=== PATIENT | female | born 1960 | race Caucasian/White ===

== ENCOUNTER 2019-11-09 09:18 | Day surgery (SDC) | payer BC ==
[~2019-11-09] VITALS: Ht 172.7 cm; Wt 119.4 kg
[2019-11-09 09:45] VITALS: BP 184/87; PULSE 81; TEMP 98.2
[2019-11-09] MEDS ORDERED: SINGULAIR 110 MG/TAB PO (09:55)
[2019-11-09] MEDS ORDERED: BENADRYL25 M2 PO (09:55)
[2019-11-09] MEDS ORDERED: MULTI VITAMINS1 TAB PO (09:55)
[2019-11-09] MEDS ORDERED: PRIL40 PO (09:56)
[2019-11-09] MEDS ORDERED: HCTZ 25MG TAB25 MG PO (09:56)
[2019-11-09] MEDS ORDERED: AVAPRO300 M1 PO (09:57)
[2019-11-09] MEDS ORDERED: AMITRIPTYLINE H25 M1 PO (09:58)
[2019-11-09] MEDS ORDERED: CELEXA 20MG20 MG/TAB PO (09:58)
[2019-11-09] MEDS ORDERED: LIPITOR20 MG PO (09:58)
[2019-11-09] MEDS ORDERED: K-DUR 10 MEQ T10 MEQ PO (09:59)
--- NOTE | 2019-11-09 10:00 | NUR ---
TO RM AT 0923- CALL LIGHT IN REACH AT BEDSIDE.
[2019-11-09 10:55] VITALS: BP 152/85; PULSE 88; TEMP 97.9
--- NOTE | 2019-11-09 10:55 | NUR ---
Patient arrives to [facility] via cart, accompanied by [facility] RN, Jayla. She is awake, alert; ambulates to chair in room with standby assist. Monitoring applied - VSS on room air. Her spouse is at the bedside. Call light in reach. She denies pain or nausea. She is offered and receives ice cream and water.
--- NOTE | 2019-11-09 11:01 | NUR ---
Dr. Lawrence is at the bedside and talks with the patient.
[2019-11-09 11:10] VITALS: BP 140/92; PULSE 67
[2019-11-09 11:25] VITALS: BP 146/82; PULSE 69
--- NOTE | 2019-11-09 11:32 | NUR ---
Discharge criteria has been met. Discharge instructions discussed with patient and her spouse; they deny questions and verbalize understanding. PIV removed with catheter intact and hemostasis achieved. She is changing to her clothing independently.
--- NOTE | 2019-11-09 11:34 | NUR ---
Patient is escorted to the exit via wheelchair. Discharge to home with ride in private vehicle at 1134.
== END 2019-11-09 11:34 | disposition home or self-care (01) ==
LOC: SDCO 09:18
DX: Z12.11 Encounter for screening for malignant neoplasm of colon (principal); K57.30 Diverticulosis of large intestine without perforation or abscess without bleeding; K62.89 Other specified diseases of anus and rectum; I10 Essential (primary) hypertension; J30.2 Other seasonal allergic rhinitis; K21.9 Gastro-esophageal reflux disease without esophagitis; F32.9 Major depressive disorder, single episode, unspecified; F41.9 Anxiety disorder, unspecified; E66.01 Morbid (severe) obesity due to excess calories; Z90.710 Acquired absence of both cervix and uterus; Z79.52 Long term (current) use of systemic steroids; Z88.2 Allergy status to sulfonamides; Z88.8 Allergy status to other drugs, medicaments and biological substances
CPT/HCPCS: J2704; J3010; J7120

== ENCOUNTER 2021-08-19 21:46 | Emergency (ER) | payer BC ==
[~2021-08-19] VITALS: Ht 172.7 cm; Wt 122.7 kg
[~2021-08-19 21:46] MED LIST: AMITRIPTYLINE H25 M1 PO; AVAPRO300 M1 PO; BENADRYL25 M2 PO; CELEXA 20MG20 MG/TAB PO; HCTZ 25MG TAB25 MG PO; K-DUR 10 MEQ T10 MEQ PO; LIPITOR20 MG PO; MULTI VITAMINS1 TAB PO; PRIL40 PO; SINGULAIR 110 MG/TAB PO
[2021-08-19 21:51] VITALS: TEMP 97.7
[2021-08-19 23:19] LABS: BASO % 0.3 % (0.0-2.0); EOS % 0.1 % (0-4.0); GRAN # 5.7 K/mm3 (1.4-6.5); GRAN % 79.4 % (42.2-75.2); HEMOGLOBIN 14.8 g/dl (12.5-16.0); LYMPH # 0.9 K/mm3 (1.2-3.4); LYMPH % 12.6 % (20.0-51.0); MEAN CELL VOLUME 87 fl (80.0-100.0); MEAN CORPUSCULAR HEMOGLOBIN 30 pg (27.0-31.0); MEAN CORPUSCULAR HGB CONC 34 g/dl (33.0-37.0); MEAN PLATELET VOLUME 10.3 fl (7.4-10.4); MONO # 0.5 K/mm3 (0.1-0.6); MONO % 7.2 % (1.7-9.3); PLATELET COUNT 211 K/mm3 (130-400); RED BLOOD COUNT 4.92 M/mm3 (4.10-5.30); REDCELL DISTRIBUTION WIDTH-CV 13.2 % (11.5-14.5)
[2021-08-19 23:46] LABS: ALBUMIN 3.9 gm/dL (3.4-4.8); BILIRUBIN,TOTAL 0.4 mg/dL (0.2-1.2); CALCIUM 8.7 mg/dL (8.4-10.2); CREATININE, serum 1.01 mg/dL (0.57-1.11); POTASSIUM 3.4 mmol/L (3.5-4.5); TOTAL PROTEIN 7.4 gm/dL (6.2-8.1)
[2021-08-20 00:45] VITALS: BP 156/84; PULSE 88
== END 2021-08-20 00:45 | disposition home or self-care (01) ==
LOC: COL.ER 21:46
PROVIDERS: Emergency Medicine
DX: U07.1 COVID-19 (principal); I10 Essential (primary) hypertension; E78.5 Hyperlipidemia, unspecified; Z79.899 Other long term (current) drug therapy
CPT/HCPCS: J2405; J7030; M0243; Q0244

== ENCOUNTER → 2022-04-18 | Outpatient (CLI) | payer BC | LOC: MC.RAD 10:00 | DX: Z12.31 Encounter for screening mammogram for malignant neoplasm of breast (principal) ==

== ENCOUNTER → 2023-06-06 | Outpatient (CLI) | payer BC | LOC: MC.RAD 10:14 | DX: Z12.31 Encounter for screening mammogram for malignant neoplasm of breast (principal) ==

== ENCOUNTER → 2024-07-02 | Outpatient (CLI) | payer BC | LOC: MC.RAD 10:34 | DX: Z12.31 Encounter for screening mammogram for malignant neoplasm of breast (principal) ==